=== PATIENT | male | born 1995 | race African-American/Black ===

== ENCOUNTER 2021-01-15 13:29 | Outpatient (CLI) | payer SELFPAY ==
[2021-01-15 13:46] LABS: Hemoglobin 15.2 g/dL (13.5-17.5); Mean Corpuscular HGB CONC 33.2 g/dL (32.0-36.0); Mean Corpuscular Hemoglobin 32.5 pg (27.0-33.0); Mean Corpuscular Volume 97.9 fl (81.2-95.1); Mean Platelet Volume 9.5 fl (7.4-10.4); Platelet Count 266 10x3/uL (150-450); Red Blood Cell (RBC) Count 4.68 10x6/uL (4.32-5.72); White Blood Cell (WBC) Count 4.4 10x3/uL (3.5-10.5)
[2021-01-15 14:03] LABS: PTT 26.8 sec (22.0-33.0); Prothrombin Time 10.9 sec (9.5-12.1)
[2021-01-15 14:06] LABS: Anion Gap 15 mmol/L (10-20); BUN (Urea Nitrogen) 12 mg/dL (8.9-20.6); Calc. Creatinine Clearance 0 mL/min (70-130); Calcium 9.6 mg/dL (7.8-10.44); Carbon Dioxide 27 mmol/L (22-29); Chloride 104 mmol/L (98-107); Glucose 86 mg/dL (70-105); Potassium 4.2 mmol/L (3.5-5.1); Sodium 142 mmol/L (136-145)
[2021-01-16 01:18] LABS: SARS-CoV-2 PCR by NAA Not Detected (NotDetected)
== END 2021-01-15 13:30 | disposition home or self-care (01) ==
LOC: LABBT 13:29
PROVIDERS: ATTEND Internal Medicine Cardiovascular Disease
DX: Z01.818 Encounter for other preprocedural examination (principal); Z20.822 Contact with and (suspected) exposure to COVID-19
CPT/HCPCS: 80048; 85027; 85610; 85730; 87635; 93005; 93010; U0003; U0005

== ENCOUNTER 2021-01-18 09:59 | Day surgery (SDC) | payer SELFPAY ==
[2021-01-18] MEDS ORDERED: Lidocaine 1% w/Epinephrine 1:100K 20 ML VIAL ONE (13:37)
== END 2021-01-18 14:50 | disposition home or self-care (01) ==
LOC: CCL 09:59
PROVIDERS: ATTEND Internal Medicine Cardiovascular Disease
PROC: 0JPT32Z Removal of Monitoring Device from Trunk Subcutaneous Tissue and Fascia, Percutaneous Approach (ICD-10-PCS; principal; 2021-01-18)
DX: Z45.09 Encounter for adjustment and management of other cardiac device (principal); I47.2 Ventricular tachycardia; R55 Syncope and collapse; R01.1 Cardiac murmur, unspecified; F17.200 Nicotine dependence, unspecified, uncomplicated

== ENCOUNTER 2021-02-02 03:01 | Emergency (ER) | payer SELFPAY | END 2021-02-02 04:05 | disposition home or self-care (01) | LOC: ERS 03:01 | DX: S20.212A Contusion of left front wall of thorax, initial encounter (principal); M54.6 Pain in thoracic spine; Z87.891 Personal history of nicotine dependence; W50.0XXA Accidental hit or strike by another person, initial encounter | CPT/HCPCS: 71046 ==

== ENCOUNTER 2021-10-27 10:13 | Outpatient (CLI) | payer BC, OTHER ==
[2021-10-27] MEDS ORDERED: Iopamidol 370 76% 100 ML VIAL ONE (12:18)
== END 2021-10-27 10:14 | disposition home or self-care (01) ==
LOC: BICCT 10:13
PROVIDERS: ATTEND Internal Medicine Cardiovascular Disease
DX: I71.2 Thoracic aortic aneurysm, without rupture (principal)
CPT/HCPCS: 71275; Q9967